=== PATIENT | female | born 1990 | race Caucasian/White ===

== ENCOUNTER 2017-02-03 20:11 | Emergency (ER) | payer SELFPAY ==
[~2017-02-03] VITALS: Ht 167.6 cm; Wt 106.5 kg
[~2017-02-03 20:11] MED LIST: CYCL-319 PO; DICL50TA11 PO; HYDR-3498 PO
[2017-02-03 21:14] VITALS: Ht 167.6 cm; Wt 106.5 kg
[2017-02-04] MEDS ORDERED: ONDANSETRON (ODT) 4 MG TAB ODT STA (02:11)
[2017-02-04] MEDS ORDERED: ACET/BUTAL/CAFF TAB PO ONE (02:30)
--- NOTE | 2017-02-04 02:59 | ERD ---
ER Documentation Chief Complaint Chief Complaint rt side MCFADDEN x2wks,worse pass 2days. +photophobia, -trauma. motrin taken HPI 26-year-old female presents here in emergency department for complaints of right -sided headache photosensitivity nausea for 2 weeks. Patient describes the pain as throbbing pain, 6/10 scale, accompanied with photosensitivity, mildly better after taking Motrin. Patient denies any head injury. Patient denies any blurry vision numbness and tingling. Patient denies any changes in balance or memory. Patient denies any fever or chills. ROS All systems reviewed and are negative except as per history of present illness. Medications Home Meds Active Scripts Diclofenac Sodium* (Diclofenac Sodium*) 50 Mg Tablet.dr, 50 MG PO TID, #14 TAB Prov:ETHAN,RASHMI DO 01/30/15 Hydrocodone Bit-Acetaminophen* ([place]*) 5-325 Mg Tab, 1 TAB PO Q6 Y for PAIN, # 11 TAB Prov:ETHAN,RASHMI DO 01/30/15 Cyclobenzaprine Hcl* (Cyclobenzaprine Hcl*) 10 Mg Tablet, 10 MG PO TID, #15 TAB Prov:ETHANRASHMI DO 01/30/15 Allergies Allergies: Coded Allergies: No Known Drug Allergies (Verified Allergy, Unknown, 02/03/17) PMhx/Soc Medical and Surgical Hx: pt denies Medical Hx, pt denies Surgical Hx History of Surgery: No Anesthesia Reaction: No Hx Neurological Disorder: No Hx Respiratory Disorders: No Hx Cardiac Disorders: No Hx Psychiatric Problems: No Hx Miscellaneous Medical Probl: No Hx Alcohol Use: No Hx Substance Use: No Hx Tobacco Use: No Smoking Status: Never smoker FmHx Family History: No coronary disease, No diabetes, No other Physical Exam Vitals Vital Signs Date Time Temp Pulse Resp B/P Pulse Ox O2 Delivery O2 Flow Rate FiO2 02/03/17 21:14 98.1 87 18 141/90 97 Physical Exam GENERAL: The patient is well developed and appropriate for usual state of health, in no apparent distress. CHEST: Clear to auscultation bilaterally. There are no rales, wheezes or rhonchi. HEART: Regular rate and rhythm. No murmurs, clicks, rubs or gallops. No S3 or S4. ABDOMEN: Soft, nontender and nondistended. Good bowel sounds. No rebound or guarding. No gross peritonitis. No gross organomegaly or masses. No Ruff sign or McBurney point tenderness. BACK: No midline or flank tenderness. EXTREMITIES: Equal pulses bilaterally. There is no peripheral clubbing, cyanosis or edema. No focal swelling or erythema. Full range of motion. Grossly neurovascularly intact. NEURO: Alert and oriented. Cranial nerves 2-12 intact. Motor strength in all 4 extremities with 5/5 strength. Sensation grossly intact. Normal speech and gait. Negative Romberg sign. Negative pronator drift. SKIN: There is no apparent rash or petechia. The skin is warm and dry. HEMATOLOGIC AND LYMPHATIC: There is no evidence of excessive bruising or lymphedema. No gross cervical, axillary, or inguinal lymphadenopathy. Results 24 hrs Current Medications Medications (Trade) Dose Ordered Sig/Fredrick Route PRN Reason Start Time Stop Time Status Last Admin Dose Admin Acetaminophen/ Butalbital/ Caffeine (Fioricet) 1 tab ONCE ONCE PO 02/04/17 02:30 02/04/17 02:31 DC 02/04/17 02:57 Ondansetron HCl (Zofran Odt) 4 mg ONCE STAT ODT 02/04/17 02:11 02/04/17 02:12 DC 02/04/17 02:57 Patient was given Zofran here in the emergency department. After treatment, patient was able to tolerate po fluids here in the emergency department without any vomiting. There is no signs and symptoms of dehydration. Patient was given medication for pain here in emergency department, after treatment, patient verbalized feeling much better. Patient's pain is improved. PROCEDURE: CT BRAIN WITHOUT CONTRAST CLINICAL INDICATION: 26-year-old female with headaches. TECHNIQUE: The study was performed utilizing a [employer] VCT 64-slice CT scanner. Direct axial sections were obtained from the foramen magnum to the vertex without the use of intravenous contrast material. Sagittal and coronal reformations were obtained. One or more the following dose reduction techniques were utilized: automated exposure control, adjustment of the mA and/or kV according to patient's size and/or the use of iterative reconstruction technique. The images were viewed on a PACS workstation. CTD/vol = 45.0 mGy; Total Exam DLP = 720.2 mGy-cm. COMPARISON: None. FINDINGS: The ventricles have a normal size, shape and position. There is no evidence for mass effect or midline shift. There are no intracranial areas of abnormal attenuation. There is no evidence for acute intra or extra-axial blood. The bony calvarium is intact. The partially visualized paranasal sinuses and mastoid air cells are without abnormal soft tissue. IMPRESSION: Unremarkable noncontrast CT scan of the brain. Signed By: Raghavendra Louis Md 02/04/2017 4:00:43 AM Procedures/MDM Medical Decision Making: Patient symptoms are consistent with migraine headache , possible tension headache. There is low suspicion for neurological emergencies at this time since patients neurologic exam is normal. Patient did not have any altered level consciousness, vomiting, changes in balance or memory and did not have any head injury. Patients CT scan of the head does not show any neurological emergencies at this time. Rx: Fioricet with codeine, Zofran Dispostion: Home. Stable Disclaimer: Inadvertent spelling and grammatical errors are likely due to EHR/ dictation software use and do not reflect on the overall quality of patient care. Also, please note that the electronic time recorded on this note does not necessarily reflect the actual time of the patient encounter. Departure Diagnosis: Primary Impression: Headache Headache type: unspecified Headache chronicity pattern: acute headache Intractability: not intractable Qualified Code: R51 - Acute nonintractable headache, unspecified headache type Condition: Stable Patient Instructions: Self-Care for Headaches GALI YIN NP Feb 04, 2017 02:59
[2017-02-04] MEDS ORDERED: ONDA4TAB14 PO (04:40)
[2017-02-04] MEDS ORDERED: FIORICET PO (04:40)
--- NOTE | 2017-02-04 08:39 | RADRPT ---
PROCEDURE: CT BRAIN WITHOUT CONTRAST CLINICAL INDICATION: 26-year-old female with headaches. TECHNIQUE: The study was performed utilizing a [employer] VCT 64-slice CT scanner. Direct axia l sections were obtained from the foramen magnum to the vertex without the use of intravenous contra st material. Sagittal and coronal reformations were obtained. One or more the following dose reduct ion techniques were utilized: automated exposure control, adjustment of the mA and/or kV according t o patient's size and/or the use of iterative reconstruction technique. The images were viewed on a PACS workstation. CTD/vol = 45.0 mGy; Total Exam DLP = 720.2 mGy-cm. COMPARISON: None. FINDINGS: The ventricles have a normal size, shape and position. There is no evidence for mass effect or midl ine shift. There are no intracranial areas of abnormal attenuation. There is no evidence for acute intra or extra-axial blood. The bony calvarium is intact. The partially visualized paranasal sinuse s and mastoid air cells are without abnormal soft tissue. IMPRESSION: Unremarkable noncontrast CT scan of the brain. .Raghavendra Louis MD, MD Date Time Electronically viewed and signed by .Raghavendra Louis MD, on 02/04/2017 04:00 .Meggan/
== END 2017-02-04 05:01 | disposition home or self-care (01) ==
LOC: FTE 20:11
DX: R51 Headache (principal)
CPT/HCPCS: 70450

== ENCOUNTER 2017-12-12 07:44 | Emergency (ER) | END 2017-12-12 08:39 | disposition home or self-care (01) ==

== ENCOUNTER 2018-07-23 16:07 | Emergency (ER) | payer OTHER ==
[~2018-07-23] VITALS: Ht 167.6 cm; Wt 105.0 kg
[~2018-07-23 16:07] MED LIST changes: -CYCL-319 PO; +CYCL10TA7 PO; +DOCU-144 PO; +FIORICET PO; +ONDA4TAB14 PO
[2018-07-23 16:09] VITALS: BP 142/66; PULSE 100; RESP 18; Ht 167.6 cm; Wt 105.0 kg
[2018-07-23] MEDS ORDERED: LORA5TAB4 PO (18:43)
[2018-07-23] MEDS ORDERED: FLUT9.9S NASAL (18:43)
--- NOTE | 2018-07-23 18:54 | ERD ---
ER Documentation Chief Complaint Chief Complaint RT EAR PAIN. CHEST WALL PAIN. HPI This is a 27-year-old female with no severe past medical history presents to the ED status post sudden onset episode of substernal chest pain and palpitations earlier today. Patient denies any precipitating factors. States the pain was pressure-like, has been constant but improving since onset. No nausea, no vomiting, no diaphoresis, no numbness, tingling, or focal weakness. Patient also reports she had episode of right ear pressure as well. She reports nasal congestion and feeling like there is something stuck in her throat. She does have allergies but does not not take any medications for this. She denies any cough. No significant family history. No shortness of breath, difficulty breathing, hypoxia or any other complaints. Patient does not smoke or do drugs. She does not have any history of hypertension or diabetes. She does not take any hormones. ROS All systems reviewed and are negative except as per history of present illness. Medications Home Meds Active Scripts Fluticasone Propionate (Flonase Allergy Relief) 9.9 Ml [place].susp, 1 SPRAY NASAL BID, #1 BOTTLE TO EACH NOSTRIL Prov:SAMIRA SANDOVAL PA-C 07/23/18 Loratadine* (Claritin*) 5 Mg Tab.rapdis, 5 MG PO DAILY, #30 TAB Prov:SAMIRA SANDOVAL PA-C 07/23/18 Docusate Sodium* (Colace*) 100 Mg Capsule, 100 MG PO TID, #30 CAP Prov:JEAN CLAUDE BE 12/12/17 Ondansetron (Ondansetron Odt) 4 Mg Tab.rapdis, 4 MG PO Q6H PRN for NAUSEA AND/OR VOMITING, #30 TAB Prov:GALI YIN NP 02/04/17 Acetamin/Butalbital/Caffeine* (Fioricet*) [id number] Tab, 1 TAB PO Q6H PRN for PAIN, #30 TAB Prov:GALI YIN NP 02/04/17 Diclofenac Sodium* (Diclofenac Sodium*) 50 Mg Tablet.dr, 50 MG PO TID, #14 TAB Prov:RASHMI LONG DO 01/30/15 Hydrocodone Bit-Acetaminophen* ([place]*) 5-325 Mg Tab, 1 TAB PO Q6 PRN for PAIN, #11 TAB Prov:RASHMI LONG DO 01/30/15 Cyclobenzaprine Hcl* (Cyclobenzaprine Hcl*) 10 Mg Tablet, 10 MG PO TID, #15 TAB Prov:RASHMI LONG DO 01/30/15 Allergies Allergies: Coded Allergies: No Known Drug Allergies (Verified Allergy, Unknown, 12/12/17) PMhx/Soc History of Surgery: No Anesthesia Reaction: No Hx Neurological Disorder: No Hx Respiratory Disorders: No Hx Cardiac Disorders: No Hx Psychiatric Problems: No Hx Miscellaneous Medical Probl: No Hx Alcohol Use: No Hx Substance Use: No Hx Tobacco Use: No Smoking Status: Never smoker Physical Exam Vitals Vital Signs Date Temp Pulse Resp B/P (MAP) Pulse Ox O2 O2 Flow FiO2 Time Delivery Rate 07/23/18 97.1 100 18 142/66 98 16:09 (91) Physical Exam Const: No acute distress Head: Atraumatic Eyes: Normal Conjunctiva ENT: Normal External Ears, Nose and Mouth. + Postnasal drip seen. + No posterior OP erythema or exudates. Uvula midline. B/L Tympanic membrane pearly and le. B/L external auditory canal without erythema or edema. No mastoid tenderness. Neck: Full range of motion. No meningismus. Resp: Clear to auscultation bilaterally Cardio: + No substernal TTP. Regular rate and rhythm, no murmurs Abd: Soft, non tender, non distended. Normal bowel sounds Skin: No petechiae or rashes Ext: No cyanosis, or edema Neur: Awake and alert Psych: Normal Mood and Affect Procedures/MDM PROCEDURES: 12-lead EKG interpretation as interpeted by Dr. Wright Normal Sinus Rhythm with ventricular rate of 94 beats per minute Normal axis Normal intervals No acute ST or T wave changes suggestive of acute ischemia or STEMI. MEDICAL DECISION MAKING: This is a 27-year-old female with no slick and past medical history presents with an episode of substernal chest pressure and palpitations this morning. Her EKG here is unremarkable. Patient does not meet PERC or Wells criteria for further evaluation.she has no significant risk factors. I have low suspicion for PE, DVT, OH, AAA, or any other emergent pathology. Patient has evidence of allergic rhinitis on physical exam. I suspect her symptoms are likely related to postnasal drip from allergies versus likely she was given Rx Claritin and Flonase. Recommended following up with the regular doctor in 2 days, otherwise return here for any new or worsening symptoms. Anxiety from her recent stress at work. PRESCRIPTIONS: Claritin, Flonase SPECIALIST FOLLOW UP RECOMMENDED: None Patient has been advised to follow up with primary care in 1-2 days. Blood Pressure Assessment: Patient's blood pressure was elevated (>120/80) but appears stable without evidence of hypertension emergency or urgency. The patient was counseled about the risks of hypertension and urged to pursue outpatient monitoring and therapy within a week with their primary care physician. Departure Diagnosis: Primary Impression: Rhinosinusitis Additional Impression: Atypical chest pain Condition: Stable Patient Instructions: Chest Pain, Noncardiac , Allergic Rhinitis Referrals: [facility] YOU HAVE RECEIVED A MEDICAL SCREENING EXAM AND THE RESULTS INDICATE THAT YOU DO NOT HAVE A CONDITION THAT REQUIRES URGENT TREATMENT IN THE EMERGENCY DEPARTMENT. FURTHER EVALUATION AND TREATMENT OF YOUR CONDITION CAN WAIT UNTIL YOU ARE SEEN IN YOUR DOCTORS OFFICE WITHIN THE NEXT 1-2 DAYS. IT IS YOUR RESPONSIBILITY TO MAKE AN APPOINTMENT FOR [facility]. IF YOU HAVE A PRIMARY DOCTOR --you should call your primary doctor and schedule an appointment IF YOU DO NOT HAVE A PRIMARY DOCTOR YOU CAN CALL OUR PHYSICIAN REFERRAL HOTLINE AT IF YOU CAN NOT AFFORD TO SEE A PHYSICIAN YOU CAN CHOSE FROM THE FOLLOWING [facility] [address] [facility]. [facility] [address] [facility]. [facility] [address] [facility] [facility] [address] [facility] [facility] [address] [facility]. [facility]. [address] [facility]. [facility] YOU HAVE RECEIVED A MEDICAL SCREENING EXAM AND THE RESULTS INDICATE THAT YOU DO NOT HAVE A CONDITION THAT REQUIRES URGENT TREATMENT IN THE EMERGENCY DEPARTMENT. FURTHER EVALUATION AND TREATMENT OF YOUR CONDITION CAN WAIT UNTIL YOU ARE SEEN IN YOUR DOCTORS OFFICE WITHIN THE NEXT 1-2 DAYS. IT IS YOUR RESPONSIBILITY TO MAKE AN APPOINTMENT FOR [facility] CARE. IF YOU HAVE A PRIMARY DOCTOR --you should call your primary doctor and schedule and appointment IF YOU DO NOT HAVE A PRIMARY DOCTOR YOU CAN CALL OUR PHYSICIAN REFERRAL HOTLINE AT . IF YOU CAN NOT AFFORD TO SEE A PHYSICIAN YOU CAN CHOSE FROM THE FOLLOWING [facility] INSTITUTIONS: [facility] [address] [place] [address] [facility] [address] [place] [address] [facility] [address] [place] [address] [facility] Additional Instructions: Call your primary care doctor TOMORROW for an appointment during the next 2-4 days and bring all the information and medications prescribed. If the symptoms get worse and your provider is unavailable, return to the Emergency Department immediately. SAMIRA SANDOVAL PA-C Jul 23, 2018 18:54
== END 2018-07-23 18:50 | disposition home or self-care (01) ==
LOC: FTE 16:07
DX: J01.90 Acute sinusitis, unspecified (principal)
CPT/HCPCS: 93005; Z7502

== ENCOUNTER 2018-10-04 21:58 | Emergency (ER) | payer OTHER ==
[~2018-10-04] VITALS: Ht 167.6 cm; Wt 102.8 kg
[~2018-10-04 21:58] MED LIST changes: +FLUT9.9S NASAL; +LORA5TAB4 PO
[2018-10-04 22:03] VITALS: BP 134/84; PULSE 120; RESP 18; Ht 167.6 cm; Wt 102.8 kg
[2018-10-05] MEDS ORDERED: AMOX1TAB10 PO (00:44)
--- NOTE | 2018-10-05 00:48 | ERD ---
ER Documentation Chief Complaint Chief Complaint SINUS CONGESTION X'S 5 DAYS HPI 28-year-old female presenting with 2 weeks of sinus congestion. She was seen by her primary care doctor about 10 days ago and given medications for cough and pain. She has been taking ibuprofen [id number]. She felt like she was getting better than suddenly got worse with facial pain on the right side of her face, right-sided headaches, and dental pain on the right as well. She has had continuous fevers, not improving with ibuprofen. Her pain is throbbing, aching, worse with leaning forward. No vision disturbance, focal weakness or numbness, vomiting, neck stiffness. ROS All systems reviewed and are negative except as per history of present illness. Medications Home Meds Active Scripts Amoxicillin/Potassium Clav (Amox-Clav 875-125 mg Tablet) 875-125 mg Tab, 1 TAB PO BID for 7 Days, #14 TAB Prov:URI BONILLA MD 10/05/18 Fluticasone Propionate (Flonase Allergy Relief) 9.9 Ml [place].susp, 1 SPRAY NASAL BID, #1 BOTTLE TO EACH NOSTRIL Prov:SAMIRA SANDOVAL PA-C 07/23/18 Loratadine* (Claritin*) 5 Mg Tab.rapdis, 5 MG PO DAILY, #30 TAB Prov:SAMIRA SANDOVAL PA-C 07/23/18 Docusate Sodium* (Colace*) 100 Mg Capsule, 100 MG PO TID, #30 CAP Prov:JEAN CLAUDE BE 12/12/17 Ondansetron (Ondansetron Odt) 4 Mg Tab.rapdis, 4 MG PO Q6H PRN for NAUSEA AND/OR VOMITING, #30 TAB Prov:GALI YIN NP 02/04/17 Acetamin/Butalbital/Caffeine* (Fioricet*) [id number] Tab, 1 TAB PO Q6H PRN for PAIN, #30 TAB Prov:GALI YIN NP 02/04/17 Diclofenac Sodium* (Diclofenac Sodium*) 50 Mg Tablet.dr, 50 MG PO TID, #14 TAB Prov:RASHMI LONG DO 01/30/15 Hydrocodone Bit-Acetaminophen* ([place]*) 5-325 Mg Tab, 1 TAB PO Q6 PRN for PAIN, #11 TAB Prov:RASHMI LONG DO 01/30/15 Cyclobenzaprine Hcl* (Cyclobenzaprine Hcl*) 10 Mg Tablet, 10 MG PO TID, #15 TAB Prov:RASHMI LONG DO 01/30/15 Allergies Allergies: Coded Allergies: No Known Drug Allergies (Verified Allergy, Unknown, 12/12/17) PMhx/Soc Medical and Surgical Hx: pt denies Medical Hx History of Surgery: No Anesthesia Reaction: No Hx Neurological Disorder: No Hx Respiratory Disorders: No Hx Cardiac Disorders: No Hx Psychiatric Problems: No Hx Miscellaneous Medical Probl: No Hx Alcohol Use: No Hx Substance Use: No Hx Tobacco Use: No Smoking Status: Never smoker FmHx Family History: No diabetes Physical Exam Vitals Vital Signs Date Temp Pulse Resp B/P (MAP) Pulse Ox O2 O2 Flow FiO2 Time Delivery Rate 10/04/18 101.8 120 18 134/84 97 22:03 (101) Physical Exam Const: No acute distress Head: Atraumatic Eyes: Normal Conjunctiva, PERRLA ENT: Normal External Ears, Nose and Mouth. TMs normal bilaterally. No cervical lymphadenopathy. Posterior oropharynx normal without exudate. No active sinus drainage. There is mild maxillary sinus tenderness. Neck: Full range of motion. No meningismus. Resp: Clear to auscultation bilaterally Cardio: Tachycardic with regular rhythm, no murmurs Neur: Awake and alert, no facial asymmetry Psych: Normal Mood and Affect Procedures/MDM This is an otherwise healthy, well appearing patient presenting with uncomplicated sinusitis. I have low clinical suspicion for deep space tissue infection of the head/neck, cavernous sinus thrombosis, meningitis, or other high-risk bacterial infection. Based on patients physical exam and clinical symptoms, Antibiotic treatment with amoxicillin-clavulanate is indicated for likely bacterial etiology given that the patients symptoms have been ongoing > 10 days with worsening symptoms after initial improvement. Patient is aware that the purpose of this visit was to screen for an acute medical emergency requiring emergent stabilization. Chronic conditions, i ncluding malignancies, have not been ruled out. Patient is instructed to follow- up with a PCP as directed in discharge instructions for continued care and work- up. If unable to arrange follow-up, patient is instructed to return to the ED for reassessment. Patient was given verbal and written discharge instructions and acknowledges understanding. Departure Diagnosis: Primary Impression: Sinusitis, acute Sinusitis location: unspecified location Recurrence: non-recurrent Qualified Codes: J01.90 - Acute sinusitis, unspecified Condition: Stable Patient Instructions: Edson Dueñas NELLIE R. MD Oct 05, 2018 00:48
== END 2018-10-05 00:52 | disposition home or self-care (01) ==
LOC: E/R 21:58
DX: J01.90 Acute sinusitis, unspecified (principal)
CPT/HCPCS: 99283